=== PATIENT | female | born 1955 | race Hispanic/Latino ===

== ENCOUNTER 2018-03-02 15:32 | Emergency (ER) | payer OTHER, MEDICARE ==
[2018-03-02 15:46] VITALS: BP 105/72
[2018-03-02] MEDS ORDERED: MOTRIN PO ONE (16:11)
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
== END 2018-03-02 18:01 | disposition home or self-care (01) ==
LOC: ED 15:32
DX: S39.012A Strain of muscle, fascia and tendon of lower back, initial encounter (principal); S13.4XXA Sprain of ligaments of cervical spine, initial encounter; S63.502A Unspecified sprain of left wrist, initial encounter; F17.200 Nicotine dependence, unspecified, uncomplicated; Z88.5 Allergy status to narcotic agent; V49.59XA Passenger injured in collision with other motor vehicles in traffic accident, initial encounter; Y93.89 Activity, other specified; Y99.8 Other external cause status; Y92.488 Other paved roadways as the place of occurrence of the external cause
CPT/HCPCS: 72040; 72100